=== PATIENT | female | born 1985 | race Caucasian/White ===

== ENCOUNTER → 2017-04-30 | Outpatient (CLI) | payer OTHER ==
--- NOTE | 2017-05-01 17:42 | RADIOLOGY REPORT (SQ) ---
EXAM DESCRIPTION: LUMBAR SPINE COMPLETE COMPLETED DATE/TIME: 04/30/2017 10:20 am REASON FOR STUDY: BILATERAL SCIATICA M54.31 SCIATICA, RIGHT SIDE COMPARISON: None. NUMBER OF VIEWS: Five views including obliques. TECHNIQUE: AP, lateral, oblique, and sacral radiographic images acquired of the lumbar spine. LIMITATIONS: None. FINDINGS: MINERALIZATION: Normal. SEGMENTATION: Normal. No transitional anatomy. ALIGNMENT: Normal. VERTEBRAE: Maintained height. No fracture or worrisome bone lesion. DISCS: Mild disc space loss of height at L4-5 and L5-S1. POSTERIOR ELEMENTS: Pedicles and facets are intact. No pars defect or posterior arch defects. HARDWARE: None in the spine. IUD in the midline uterus PARASPINAL SOFT TISSUES: Normal. PELVIS: Intact as visualized. No fractures or worrisome bone lesions. SI joints intact. OTHER: No other significant finding. IMPRESSION: Mild disc space loss of height at L4-5 and L5-S1 TECHNICAL DOCUMENTATION: JOB ID: [id number] [employer]- All Rights Reserved
== END ==
LOC: OD 10:05
PROVIDERS: ATTEND Family Medicine
DX: M54.31 Sciatica, right side (principal)
CPT/HCPCS: 72110

== ENCOUNTER 2018-12-23 06:50 | Day surgery (SDC) | payer OTHER ==
[2018-12-15 10:28] LABS: HEMATOCRIT 41.5 % (36.0-47.0); HEMOGLOBIN 14.4 g/dL (12.0-15.5); MEAN CORPUSCULAR HEMOGLOBIN 31.3 pg (27.0-33.4); MEAN CORPUSCULAR HGB CONC 34.6 g/dL (32.0-36.0); MEAN CORPUSCULAR VOLUME 90 fl (80-97); PLATELET COUNT 247 10^3/uL (150-450); RED BLOOD COUNT 4.59 10^6/uL (3.72-5.28); RED CELL DISTRIBUTION WIDTH 13.1 % (11.5-14.0); WHITE BLOOD COUNT 6.9 10^3/uL (4.0-10.5)
[2018-12-15 11:02] LABS: ALANINE AMINOTRANSFERASE 44 U/L (9-52); ALKALINE PHOSPHATASE 98 U/L (38-126); AMYLASE 49 U/L (30-110); ANION GAP 7 (5-19); ASPARTATE AMINO TRANSFERASE 30 U/L (14-36); BILIRUBIN,DIRECT 0.3 mg/dL (0.0-0.4); BILIRUBIN,TOTAL 0.4 mg/dL (0.2-1.3); BLOOD UREA NITROGEN 12 mg/dL (7-20); CARBON DIOXIDE 26 mmol/L (22-30); CHLORIDE 104 mmol/L (98-107); GLUCOSE 77 mg/dL (75-110); POTASSIUM 4.5 mmol/L (3.6-5.0); SODIUM 136.8 mmol/L (137-145); TOTAL PROTEIN 7.1 g/dL (6.3-8.2)
[~2018-12-23 06:50] MED LIST: ACETAMINOPHEN 325 MG TABLET PO PRN; CEFAZOLIN 1 GM/D5W RTU 1 GM/50 ML RTUPB IV PRN; LACTATED RINGERS 1000 ML IV PRN; LIDOCAINE 0.5% INJ-PF (5 MG/ML) 50 ML SDV SUBCUT PRN; METRONIDAZOLE 500 MG/NS RTU 500 MG/100 ML RTUPB IV PRN
[2018-12-23] MEDS ORDERED: PROMETHAZINE HCL INJ 25 MG/1 ML VIAL ONE (07:02)
[2018-12-23] MEDS ORDERED: HYDROMORPHONE HCL INJ/PF 2 MG/ML AMPULE ONE (07:02)
[2018-12-23] MEDS ORDERED: MIDAZOLAM 2 MG/2 ML INJ ONE ×3 (07:02→08:40)
[2018-12-23] MEDS ORDERED: PROPOFOL INJ 200 MG/20 ML VIAL IV ONE ×2 (07:02→08:41)
[2018-12-23] MEDS ORDERED: ACETAMINOPHEN 0 MG/0 ML RTUPB IV ONE (07:03)
[2018-12-23] MEDS ORDERED: METRONIDAZOLE 500 MG/NS RTU 500 MG/100 ML RTUPB IV ONE (07:15)
[2018-12-23] MEDS ORDERED: CEFAZOLIN 1 GM/D5W RTU 1 GM/50 ML RTUPB IV ONE (07:15)
[2018-12-23] MEDS ORDERED: BUPIVACAINE HCL 0.25 % INJ/PF (2.5 MG/1 ML) 30 ML VIAL ONE (07:53)
[2018-12-23] MEDS ORDERED: SCOPOLAMINE HYDROBROMIDE 1.5 MG PATCH.TD72 ONE (08:36)
[2018-12-23] MEDS ORDERED: FAMOTIDINE INJ/PF 20 MG/2 ML SDV IV ONE (08:36)
[2018-12-23] MEDS ORDERED: METOCLOPRAMIDE HCL INJ/PF 10 MG/2 ML SDV ONE (08:36)
[2018-12-23] MEDS ORDERED: FENTANYL CITRATE INJ/PF 100 MCG/2 ML AMPUL ONE ×2 (08:40→10:24)
[2018-12-23] MEDS ORDERED: MORPHINE SULFATE 10 MG/ML INJ ONE (08:41)
[2018-12-23] MEDS ORDERED: ACETAMINOPHEN 1,000 MG/100 ML RTUPB IV ONE (08:41)
[2018-12-23] MEDS ORDERED: ALBUTEROL SULFATE 0.083% NEB 2.5 MG/3 ML AMPUL NEB ONE (08:51)
[2018-12-23] MEDS ORDERED: MEPERIDINE HCL/PF INJ 25 MG/1 ML DISP.SYRIN IV PRN (09:48)
[2018-12-23] MEDS ORDERED: MORPHINE SULFATE 10 MG/ML INJ IV PRN (09:48)
[2018-12-23] MEDS ORDERED: DIPHENHYDRAMINE HCL 50 MG/ML VIAL IV PRN (09:48)
[2018-12-23] MEDS ORDERED: FENTANYL CITRATE INJ/PF 100 MCG/2 ML AMPUL IV PRN ×3 (09:48)
[2018-12-23] MEDS ORDERED: PROMETHAZINE HCL INJ 25 MG/1 ML VIAL IV PRN ×2 (09:48)
--- NOTE | 2018-12-23 10:17 | Operative Report ---
Nonrecallable Operative Report DATE OF SURGERY: 12/23/18 PREOPERATIVE DIAGNOSIS: cholelithiasis POSTOPERATIVE DIAGNOSIS: cholelithiasis OPERATION: laparoscopic cholecystectomy SURGEON: JENNIFER AHMADI ANESTHESIA: GA TISSUE REMOVED OR ALTERED: gallbladder COMPLICATIONS: none ESTIMATED BLOOD LOSS: 10cc INTRAOPERATIVE FINDINGS: see dictation PROCEDURE: see dictation
[2018-12-23] MEDS ORDERED: OXYCODONE-ACETAMINOPHEN 5-325 MG TABLET PO PRN (10:21)
--- NOTE | 2018-12-23 10:21 | Discharge Summary ---
Discharge Summary (SDC) - Discharge Final Diagnosis: cholelithiasis Date of Surgery: 12/23/18 Discharge Date: 12/23/18 Condition: Good Referrals: HERBERTH GALLARDO MD [Primary Care Provider] - Discharge Diet: As Tolerated Discharge Activity: Activity As Tolerated, No Lifting Over 10 Pounds Report the Following to Your Physician Immediately: Shortness of Breath, Nausea, Vomiting, Yellow Skin, Fever over 101 Degrees
[2018-12-23] MEDS ORDERED: OXYCODONE-ACETAMINOPHEN 5-325 MG TABLET ONE (11:09)
[2018-12-23 12:08] VITALS: BP 101/55
--- NOTE | 2018-12-23 12:54 | OPERATIVE REPORT E ---
Operative Report NAME: JANETTE ADAMES : 1985 AGE: 33Y DATE OF SURGERY: 12/23/2018 ROOM: PREOPERATIVE DIAGNOSIS: CHOLELITHIASIS. POSTOPERATIVE DIAGNOSIS: CHOLELITHIASIS. OPERATIVE PROCEDURE: Laparoscopic cholecystectomy. SURGEON: JENNIFER AHMADI M.D. DESCRIPTION OF PROCEDURE: The patient was brought to the operating room in awake, alert, and stable condition, placed on the operating table in supine position, induced under general anesthesia and intubated. The abdomen was prepped and draped in the usual sterile manner for the procedure. A Veress needle was placed in through the umbilical and abdomen was insufflated with 6 L of CO2 gas. A supraumbilical 10 mm incision was made with a 10 blade and a 10 mm port placed in the abdominal cavity. Intraabdominal visualization revealed no evidence of a Veress needle or trocar injury. An epigastric port placed, 5 mm, and 2 lateral 5 mm ports placed under direct vision. The gallbladder was identified. It was placed on traction. The hepatoduodenal ligament was dissected, isolating the cystic duct and cystic artery. Two Endoclips were placed on the stay side and one on the specimen side of each of those structures. They were divided. The gallbladder was dissected out of the liver bed with Bovie cautery, placed in an Endobag, and removed through the umbilical port site. The right upper quadrant was copiously irrigated with normal saline, suctioned dry. Hemostasis noted to be intact. The ports were then removed. The umbilical port site was closed with 0 Vicryl in the fascia and then all 4 skin incisions were closed with intracuticular 4-0 Biosyn. The Steri-Strips completed the procedure. Estimated blood loss was less than 25 mL. Sponge and needle counts were correct x2. The patient was awakened in the operating room, extubated, and transferred to recovery in stable condition. No complications. DICTATING PHYSICIAN: JENNIFER AHMADI M.D. [id number] PHY#: [id number] ID: [id number] JOB#: [id number] ACCT: [id number] cc:JENNIFER AHMADI M.D. >
[2018-12-23] MEDS ORDERED: NEOSTIGMINE METHYLSULFATE 10 MG/10 ML VIAL ONE (13:51)
[2018-12-23] MEDS ORDERED: ROCURONIUM BROMIDE INJ 50 MG/5 ML VIAL IV ONE (13:51)
[2018-12-23] MEDS ORDERED: SUCCINYLCHOLINE CHLORIDE INJ 200 MG/10 ML VIAL ONE (13:51)
[2018-12-23] MEDS ORDERED: ONDANSETRON HCL INJ/PF 4 MG/2 ML SDV ONE (13:51)
[2018-12-23] MEDS ORDERED: PHENYLEPHRINE HCL INJ/PF 10 MG/1 ML SDV ONE (13:51)
[2018-12-23] MEDS ORDERED: GLYCOPYRROLATE 1 MG/5 ML SYRINGE ONE (13:51)
[2018-12-23] MEDS ORDERED: DEXAMETHASONE SOD PHOSPHATE INJ 4 MG/1 ML VIAL ONE (13:51)
== END 2018-12-23 12:05 | disposition home or self-care (01) ==
LOC: OROUT 06:50
PROVIDERS: ATTEND Surgery
DX: K81.1 Chronic cholecystitis (principal); J45.909 Unspecified asthma, uncomplicated; F17.210 Nicotine dependence, cigarettes, uncomplicated; Z79.899 Other long term (current) drug therapy
CPT/HCPCS: 86900; 86901; 36415 ×2; 86850; 82150; 85027; 81025; 80076; 80048; 88304 ×2; 47562; J2250; J0690; J3490 ×2; J1100; J3010; J2765; J2270; J2370; J0330; J2405; J2704; S0028; J0131; 790; J1170; J2550

== ENCOUNTER 2019-04-10 12:47 | Emergency (ER) | payer OTHER ==
[2019-04-10] MEDS ORDERED: ACETAMINOPHEN 325 MG TABLET PO ONE (13:00)
--- NOTE | 2019-04-10 13:39 | RADIOLOGY REPORT (SQ) ---
EXAM DESCRIPTION: FOOT RIGHT COMPLETE COMPLETED DATE/TIME: 04/10/2019 1:23 pm REASON FOR STUDY: pain COMPARISON: None. NUMBER OF VIEWS: Three views. TECHNIQUE: AP, lateral and oblique radiographic images acquired of the right foot. LIMITATIONS: None. FINDINGS: MINERALIZATION: Normal. BONES: No acute fracture or dislocation. No worrisome bone lesions. JOINTS: No effusions. SOFT TISSUES: No soft tissue swelling. No foreign body. OTHER: No other significant finding. IMPRESSION: NEGATIVE STUDY OF THE RIGHT FOOT. NO RADIOGRAPHIC EVIDENCE OF ACUTE INJURY. TECHNICAL DOCUMENTATION: JOB ID: [id number] [email or web address]- All Rights Reserved Reading location - IP/workstation name: [email or web address]
--- NOTE | 2019-04-10 13:45 | ER Document Report ---
HPI - HPI Patient complains to provider of: Right foot pain Time Seen by Provider: 04/10/19 12:57 Pain Level: 2 Context: Patient is a 34-year-old female presents to the emergency department for right anterior lateral foot pain. Patient states she plays softball and works out a lot. Patient does not remember a specific injury but states in the last couple of days she has noticed working out has been more hard. Patient states she does play softball on a regular basis and potentially hard at that but is unsure of an exact injury date. Patient's denying any pain in her ankle. States she does have some swelling noted to the anterior lateral right foot. Patient is denying any other complaints. - CONSTITUTIONAL Constitutional: DENIES: Fever, Chills - REPRODUCTIVE Reproductive: DENIES: : - MUSCULOSKELETAL Musculoskeletal: REPORTS: Extremity pain - right foot Past Medical History - General Information source: Patient - Social History Smoking Status: Current Every Day Smoker Chew tobacco use (# tins/day): No Frequency of alcohol use: Occasional Drug Abuse: None Family History: Reviewed & Not Pertinent Patient has suicidal ideation: No Patient has homicidal ideation: No - Past Medical History Cardiac Medical History: Reports: Hx Hypertension - WITH Denies: Hx Coronary Artery Disease, Hx Heart Attack Pulmonary Medical History: Reports: Hx Asthma Denies: Hx Bronchitis, Hx COPD, Hx Pneumonia Neurological Medical History: Denies: Hx Cerebrovascular Accident, Hx Seizures Renal/ Medical History: Denies: Hx Peritoneal Dialysis Musculoskeletal Medical History: Denies Hx Arthritis Psychiatric Medical History: Reports: Hx Anxiety, Hx Depression Past Surgical History: Reports: Hx Section - x2, Hx Cholecystectomy, Hx Orthopedic Surgery - R foot - Immunizations Hx Diphtheria, Pertussis, Tetanus Vaccination: Yes Vertical Provider Document - CONSTITUTIONAL Agree With Documented VS: Yes Notes: GENERAL: Alert, interacts well. No acute distress. HEAD: Normocephalic, atraumatic. EYES: Pupils equal, round, and reactive to light. Extraocular movements intact. ENT: Oral mucosa moist, tongue midline. NECK: Full range of motion. Supple. Trachea midline. LUNGS: Clear to auscultation bilaterally, no wheezes, rales, or rhonchi. No respiratory distress. HEART: Regular rate and rhythm. No murmur ABDOMEN: Soft, non-tender. Non-distended. Bowel sounds present in all 4 quadrants. EXTREMITIES: Moves all 4 extremities spontaneously. normal radial and dorsalis pedis pulses bilaterally. Slight swelling and ecchymosis noted to the dorsal aspect of the right foot laterally. Patient has full range of motion of the right ankle and all 5 toes on the right foot. Full range of motion right knee, right hip. BACK: no cervical, thoracic, lumbar midline tenderness. No saddle anesthesia, normal distal neurovascular exam. NEUROLOGICAL: Alert and oriented x3. Normal speech. cranial nerves II through XII grossly intact PSYCH: Normal affect, normal mood. SKIN: Warm, dry, normal turgor. - INFECTION CONTROL TRAVEL OUTSIDE OF THE [place] IN LAST 30 DAYS: No Course - Re-evaluation Re-evalutation: 04/10/19 13:43 Foot X-Ray 04/10/19 13:00 IMPRESSION: NEGATIVE STUDY OF THE RIGHT FOOT. NO RADIOGRAPHIC EVIDENCE OF ACUTE INJURY. Discussed use of Ramirez wrap and crutches for continued support. Discussed use of [id number] Tylenol Motrin and ice. Discussed close follow-up with primary care provider or orthopedics. At this time will discharge with return precautions and follow-up recommendations. Verbal discharge instructions given a the bedside and opportunity for questions given. Medication warnings reviewed. Patient is in agreement with this plan and has verbalized understanding of return precautions and the need for primary care follow-up in the next 24-72 hours. This medical record was dictated with voice recognizing software. There may be grammatical, syntax errors that are unintended. - Vital Signs Vital signs: Temp Pulse Resp BP Pulse Ox 104 H 16 133/87 H 99 04/10/19 12:56 04/10/19 12:56 04/10/19 12:56 04/10/19 12:56 Discharge - Discharge Clinical Impression: Right foot injury Qualifiers: Encounter type: initial encounter Qualified Code(s): S99.921A - Unspecified injury of right foot, initial encounter Condition: Stable Disposition: HOME, SELF-CARE Instructions: Hematoma ([facility]) Additional Instructions: He has been seen and treated in the emergency department for an injury to her right foot. Your x-rays revealed no signs of broken bones. Please use Ramirez wrap and crutches for support as needed. Please also apply ice 20 minutes on, 20 minutes off. Please take [id number] Tylenol Motrin for generalized pain. Please follow-up with your primary care provider in the next 24 to 48 hours. Phone numbers for orthopedic provider will also be provided in this packet. Please return to the emergency room should you have any further concerns Forms: Return to Work Referrals: HERBERTH GALLARDO MD [Primary Care Provider] - Follow up as needed CLAYTON LEON MD [ACTIVE STAFF] - Follow up as needed
[2019-04-10 14:06] VITALS: BP 121/81
== END 2019-04-10 14:10 | disposition home or self-care (01) ==
LOC: ER 12:47
DX: S99.921A Unspecified injury of right foot, initial encounter (principal); X58.XXXA Exposure to other specified factors, initial encounter; F17.200 Nicotine dependence, unspecified, uncomplicated; Z90.49 Acquired absence of other specified parts of digestive tract
CPT/HCPCS: 99283